=== PATIENT | male | born 1985 | race American Indian/Alaskan Native ===

== ENCOUNTER 2021-10-07 21:26 | Emergency (ER) | payer SELFPAY ==
[2021-10-07 22:48] VITALS: BP 142/76
== END 2021-10-08 02:00 | disposition left against medical advice (07) ==
LOC: ED 21:26
DX: S41.159A Open bite of unspecified upper arm, initial encounter (principal); Z53.21 Procedure and treatment not carried out due to patient leaving prior to being seen by health care provider